=== PATIENT | female | born 1995 | race Caucasian/White ===

== ENCOUNTER 2024-10-08 11:22 | Emergency (ER) | payer OTHER, SELFPAY ==
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
[2024-10-08 11:23] VITALS: BP 147/102; PULSE 75; RESP 16; TEMP 36.2; O2SAT 98
--- OUTSIDE RECORDS SUMMARY | 2024-10-08 11:25 | XMS_ITS | Clinical Summary ---
Author Organization [facility] [employer] Address [address] [place] [address] Care Team Providers Care Risk Assessor Name Role Phone Bob Huston MD Primary Care Provider [phone] Source Comments [facility],non-owned Affiliates and Associated Physician Practices is amultiple site organization consisting of ambulatory clinics and hospital sitesin [place], [place], [place] and [place]. This disclosure is being madepursuant to the Care Everywhere program and may not contain all information available regarding this patient. Last updated 18.[facility] Allergies No known active allergies Medications * Be aware that medications may not be up to date on this document. Alwaysverify current medications with the patient. Levonorgestrel 13.5 MG 13.5 mg by Intrauterine route as directed Active Active Problems Problem Noted Date Diagnosed Date Well female exam with routine gynecological exam 03/31/2022 Assessment & Plan (03/31/2022 4:43 PM CDT): Pap smear performed - with reflex HPV. Declines STI screening Not yet due for mammogram. Family planning reviewed. She is currently using IUD for contraception but is due for it to be removed. She recently got and they may attempt next year. Recommended vitamins prior to trying. Next appointment IUD removal. Surveillance of (intrauterine) contraceptive dev ice 03/03/2019 Overview (03/03/2019): 01/28/2019 Michelle IUD (3 year) Papanicolaou smear of cervix with low grade squamous intraepithelial lesion (LGSIL) 06/30/2018 Overview (01/06/2019): S/p gardasil vaccine x 3 06/2018: LSIL pap, plan repeat cytology 12 months Resolved Problems Problem Noted Date Diagnosed Date Resolved Date Encounter for gynecological examination without abnormal finding 04/05/2015 07/01/2019 Overview (09/21/2017): 01/2015. Initiated OCPs (alesse) for BC Family History Medical History Relation Name Comments Hypertension Brother Diabetes Father Hypertension Father Cancer - Colon Maternal Grandfather Diabetes Maternal Grandfather Diabetes Maternal Grandmother Diabetes Mother Diabetes Paternal Grandfather Relation Name Status Comments Brother Father Maternal Grandfather Maternal Grandmother Mother Paternal Grandfather Social History Tobacco Use Types Packs/Day Years Used Date Smoking Tobacco: Never Smokeless Tobacco: Never Alcohol Use Standard Drinks/Week Comments Yes 0 (1 standard drink = 0.6 oz pur e alcohol) 5 a week Comments No Sex and Gender Information Value Date Recorded Sex Assigned at Not on file 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 Gender Identity Not on file Sexual Orientation Not on file Last Filed Vital Signs Vital Sign Reading Time Taken Comments Blood Pressure 122/82 03/31/2022 3:11 PM CDT Pulse 88 03/31/2022 3:11 PM CDT Temperature - - Respiratory Rate - - Oxygen Saturation 92% 03/31/2022 3:11 PM CDT Inhaled Oxygen Concentration - - Weight 135.2 kg (298 lb) 03/31/2022 3:11 PM CDT Height 177.8 cm (5' 10 ) 03/31/2022 3:11 PM CDT Body Mass Index 42.76 03/31/2022 3:11 PM CDT Plan of Treatment Health Maintenance Due Date Last Done Comments HIV SCREENING 2011 HEPATITIS C SCREENING 06/21/2014 DTAP/TDAP/TD VACCINES (1 - Tdap) 2015 HEPATITIS B VACCINE (1 of 3 - 19+ 3-dose series) 2015 COVID-19 VACCINE (2023-2 5 season) 2024 DEPRESSION SCREENING 06/22/2024 INFLUENZA VACCINE (Season Ended) 2025 05/16/2022 PAP SMEAR 03/31/2025 03/31/2022, 07/01/2019, 06/23/2018 ZOSTER VACCINE (1 of 2) 2046 HIB VACCINE Aged Out No longer eligi ble based on patient's age to complete this topic HPV VACCINE Aged Out No longer eligi ble based on patient's age to complete this topic MENINGOCOCCAL (Group B) VACCINE SHARED DECISION-MAKING Aged Out No longer eligible based on patient's age to complete this topic MENINGOCOCCAL GROUPS A/C/Y/W VACCINE Aged Out No longer eligible b ased on patient's age to complete this topic PNEUMOCOCCAL VACCINE Aged Out No long er eligible based on patient's age to complete this topic Procedures Procedure Name Priority Date/Time Associated Diagnosis Comments PAP IMAGE-GUIDED RFLX HPV Routine 03/31/2022 3:30 PM CDT Well female exam with routine gynecological exam from Last 3 Months or Most Recently Relevant to Health Maintenance Results * PAP IMAGE-GUIDED RFLX HPV (03/31/2022 3:30 PM CDT) Case Report Gynecologic Cytology Report Case: [id number] Authorizing Provider: Shayy Sands MD Collected: 03/31/2022 03:30 PM Ordering Location: [facility] Obstetrics Received: 04/01/2022 12:03 PM [facility]cology [facility] Women[facility] First Screen: Michael Ken Specimen: THINPREP - NON IMAGE GUIDED, Cervix/Endocervix 04/01/2022 1:50 PM CDT [facility] LMP n/a 04/01/2022 1:50 PM CDT [facility] Menstrual Status IUD 04/01/20 22 1:50 PM CDT [facility] Specimen Adequacy Satisfactory for evaluation, endocervical/trans formation zone component present. 04/01/2022 1:50 PM CDT [facility] Categorization Negative for intraepithelial lesion or malignancy. 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 04/01/2022 1:50 PM CDT [facility] Pap Footnote The Pap Smear is a screening test. False positive and false negative results occur. Negative results do not preclude abnormalities, thus clinical correlation is required. This specimen was evaluated by the ThinPrep Imaging System along with an additional manual rescreening by a guitar maker hand and/or pathologist. 04/01/2022 1:50 PM CDT [facility] Pathology/Cytolo gy MISCELLANEOUS SAMPLES / Unknown 03/31/2022 3:30 PM CDT 04/01/2022 12:03 PM CDT Shayy Sands MD LAB - PATHOLOGY/CYTOLOGY O RDERABLES Final Result Performing Organization Address City/State/[facility] Co de Phone Number [facility] [address] [phone] from Last 3 Months or Most Recently Relevant to Health Maintenance Insurance [employer] Care Teams Risk Assessor Relationship Specialty Start Date End Date Bob Huston MD [address] [place] [address] PCP - General 03/15/18
--- OUTSIDE RECORDS SUMMARY | 2024-10-08 11:25 | XMS_ITS | Encounter Summary ---
Author Organization [facility] Address [address] [place] [address] Care Team Providers Care Transit Operator Name Role Phone No, Physician Unavailable Eduardo Chong MD Unavailable Anita Ibarra Primary Care Provider + Encounter Details Date Type Department Care Team (Late st Contact Info) Description 09/21/2024 Results Follow-Up [facility] Family Medicine [address] [phone] Janine Diaz PA [address] [address] Social History Tobacco Use Types Packs/Day Years Used Date Smoking Tobacco: Never Smokeless Tobacco: Never AUDIT-C Answer Date Recorded Q1: How often do you have a drink containing alcohol? Never 04/01/2024 Q2: How many drinks containi ng alcohol do you have on a typical day when you are drinking? Patient does not drink Q3: How often do you have si x or more drinks on one occasion? Never 04/01/2024 PHQ-2 Answer Date Recorded PHQ-2 Total Score (If total score is 3 or more points, staff should administer the PHQ-9) 0 06/10/2024 [place] Depression Scale Answer Date Recorded [place] Depression Scale Total 3 02/14/2024 The thought of harming myself has occurred to me . Never 02/14/2024 PHQ-9 Answer Date Recorded PHQ-9 Total Score 1 02/17/2024 Personal Safety Answer Date Recorded Have you ever been in or are you currently in a harmful physical or emotional relationship or is someone making you feel afraid or unsafe? 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 Gender Identity Female 09/08/2022 10:50 AM CDT Sexual Orientation Straight 03/01/2024 12 :19 PM CDT documented as of this encounter Plan of Treatment Not on file documented as of this encounter Visit Diagnoses Not on filedocumented in this encounter Care Teams Transit Operator Relationship Specialty Start Date End Date Anita Ibarra PA [address] [facility] [address] [place], [place] [phone] PCP - General Family Medicine 02/17/24 No, Physician 09/05/22 Eduardo Chong MD [address] [place] [address] [address] [place] [address] Consulting Physician General Surgery 01/23/24 documented as of this encounter
--- OUTSIDE RECORDS SUMMARY | 2024-10-08 11:25 | XMS_ITS | Clinical Summary ---
Author Organization [facility] Address [address] [place] [address] Care Team Providers Care Clinical Laboratory Science Professor Name Role Phone No, Physician Unavailable Eduardo Chong MD Unavailable Anita Ibarra Primary Care Provider + Allergies No known active allergies Medications vit [id number] a 27mg iron- 800 mcg-250 mg capsule Take by mouth Active escitalopram (LEXAPRO) 10 mg tablet Take 1 tablet (10 mg total) by mouth daily 30 tablet 5 02/18/2024 Active Hospital, Clinic, or Other Facility Administered Medication Ordered Dose Route Frequency Start Date End Date Status levonorgestreL (MIRENA) 21 mcg/24 hr (8 yrs) 52 mg IUDIndications:Abn ormal Uterine Bleeding intrauterine Continuous (implanted device) 02/18/2024 9 Active Active Problems Problem Noted Date Diagnosed Date Splenomegaly 04/01/2024 Assessment & Plan (06/10/2024 8:28 PM ACOUSTIC INTELLIGENCE SPECIALIST): CBC normal, LFT's normalized US Spleen appears worsening Repeat US spleen in a few weeks Recheck CBC and mono/EBV as well (already ordered) Unknown if spleen was enlarged prior to January - no other imaging to have comparison to previously. Will continue to follow Should it continue to enlarge, would refer to specialist Assessment & Plan (04/01/2024 11:36 AM CDT): Mild splenomegaly seen on MRI and ultrasound of the spleen. Patient has normal CBC. Liver enzymes have significantly improved. Discussed that her splenomegaly could have been related to her cholecystitis/pancreatitis in the past. She denies any abdominal pain. Discussed further workup. For now, we will plan on repeat labs and ultrasound of the spleen in 2 months (3 months from previous test). Educated patient to alert the office should she develop any symptoms which might include but not limited to: Abdominal pain, irregular bruising or bleeding, signs of infection, significant weight change. Cautioned patient to follow splenomegaly precautions - avoid any contact sports or recreational activities could result in fall or injury to the abdomen. She voiced understanding History of cholecystectomy 02/17/2024 Assessment & Plan (02/17/2024 5:01 PM CDT): Doing well postop. Repeat liver enzymes ordered and reviewed. Have improved. Patient was already seen her surgeon for follow up. Class 3 severe obesity due t o excess calories without serious comorbidity with body mass index (BMI) of 40.0 to 44.9 in adult 01/23/2024 Assessment & Plan (02/17/2024 5:02 PM CDT): Patient is 5 weeks . We will continue to monitor her weight. BMI Follow-up includes: nutrition counseling and exercise counseling. care following vaginal delivery 01/07 Overview (01/09/2024): 01/08/24, PPD#1 (Wine) S/p uncomplicated Baby Girl, Annette Del Rosario EBL 400 cc, Hgb 12.4 > 11.7 A+, Rubella immune Vital signs reviewed and notable for MR BP x5 gHTN: PIH labs pending for today; CBC and CMP ordered Reviewed s/p PreE, pt is asymptomatic at this time Ambulating, tolerating PO, voiding spontaneously, lochia moderate, pain controlled MOF: Both formula and MOC: Undecided VTE ppx: The patient has the following MAJOR risk factors BMI >/= 40 and the following MINOR risk factors none. enoxaparin 40 mg daily ordered for VTE prophylaxis. Dispo: Continue routine care. 01/09/24, PPD#2 (BD) S/p uncomplicated Baby Girl, Annette Del Rosario EBL 400 cc, Hgb 12.4 > 11.7 A+, Rubella immune Vital signs reviewed and notable for MR BP gHTN: PIH labs - normal, asympt, no treatable BPs Reviewed Pre-E precautions Needs f/u BP check in 1wk in office Ambulating, tolerating PO, voiding spontaneously, lochia moderate, pain controlled MOF: Both formula and MOC: Undecided VTE ppx: The patient has the following MAJOR risk factors BMI >/= 40 and the following MINOR risk factors none. enoxaparin 40 mg daily ordered for VTE prophylaxis. Dispo: Continue routine care. Anticipate D/C home today. Encounter for induction of labor 01/07/2024 Overview (01/09/2024): 01/07/2024 0810 (CZ) 28 yo @ 37w1d here for induction of labor. Her is complicated by gHTN (normal Pre-e labs) and Obesity (last EFW 65%). VSS, afebrile A+, Rubella Immune Hgb: 11.7 GBS Negative Reactive tracing SVE 2/50/-2 S/p miso x2 doses Plan: Epidural placement and AROM @ 10 with OT Consider internals if needed Anticipate 01/07/2024 1018 (CZ) VSS, afebrile Reactive tracing Comfortable with epidural SVE: 4/50/-2 AROM performed with patient consent. Moderate amount of pink tinged fluid Plan - initiate OT Consider internals if needed Anticipate 01/07/2024 1304 (CZ) VSS, afebrile Reactive tracing Comfortable with epidural SVE: 4.5/70/-1 Ot titration @ 2mu/hr - continue titration per protocol IUPC and FSE placed with patient consent. Anticipate 01/07/2024 1545 (CZ) VSS, afebrile Reactive tracing Comfortable with epidrual SVE 5/90/0 OT titration at 10 mu/hr Suspect OP baby Patient to hands and knees to shake the apple tree and hips/SI joint massage Anticipate Obesity affecting , antepartum 07/08/19 24 Resolved Problems Problem Noted Date Diagnosed Date Resolved Date Acute pancreatitis without i nfection or necrosis, unspecified pancreatitis type 01/23/2024 02/17/2024 Elevated transaminase level 01/23/2024 06/10/2024 Assessment & Plan (06/10/2024 8:26 PM ACOUSTIC INTELLIGENCE SPECIALIST): Resolved Assessment & Plan (04/01/2024 11:36 AM CDT): Improved. Repeat labs 2 months Assessment & Plan (02/17/2024 5:01 PM CDT): Repeat labs so that these levels have returned to normal/baseline. Likely was elevated due to acute cholecystitis at that time. Thickening of wall of gallbladder 01/23/2024 02/17/2024 Encounters Date Type Department Care Team Description 09/21/2024 Results Follow-Up [facility] Medicine [address] [place] [phone] Janine Diaz PA 09/14/2024 5:19 PM CDT - 09/14/2024 11:59 PM CDT Hospital Encounter [facility] Ultrasound [address] [place] [phone] Splenomegaly; LUQ pain Discharge Disposition: Discharge to home or self care 09/05/2024 10:45 AM CDT Office Visit [facility] Family Medicine [address] [place] [phone] Eduardo Polanco MD LUQ pain (Primary Dx); Left flank pain; Acute left-sided low back pain without sciatica; Splenomegaly; Morbid obesity with BMI of 40.0-44.9, adult (HCC) 08/04/2024 Telephone [facility] Family Medicine [address] [place] [phone] Anita Ibarra PA 07/20/2024 Orders Only [facility] Lab [address] [place] [address] Anita Ibarra PA 07/19/[address] [phone] Anita Ibarra PA 07/19/2024 Orders Only [address] [phone] Anita Ibarra PA 07/18/2024 1:35 PM ACOUSTIC INTELLIGENCE SPECIALIST Lab [facility] Lab [address] [place] [phone] Splenomegaly 07/11/[address] [phone] Anita Ibarra PA Medical Question/Miscellaneo us 07/11/[address] [phone] Anita Ibarra PA from Last 3 Months Immunizations Immunization Administration Dates Next Due DTaP 02/11/2002, 8,01/06/1997,10/31,1996 HPV, Quadrivalent 09/24/2010,03/22/2010,12/22/19 10 Hep A, Pediatric 12/18/2008,01/22/2007 Hep B, Adolescent or Pediatric 03/24/1997,1996,1996 HiB 01/06/1997,1996,1996 IPV 02/11/2002, 8,1996,09/01 Influenza, Live, Trivalent, Intranasal 0 Influenza, Quadrivalent, Celestina l Culture-based MDCK, Preservative Free, Antibiotic Free, Intramuscular 04/29/2023 Influenza, Quadrivalent, Spl it, Intramuscular 06/27/2015 Influenza, Trivalent, Cell Culture-based MDCK, Preservative Free, Antibiotic Free, Intramuscular 03/24/2024 Influenza, Unspecified 04/29/2023,2021(Deferred: Patient decision),03/22/2022 MMR 02/11/2002,06/30/1997 Meningococcal MCV4P (Menactra) 01/19/2013,2008 Tdap 11/03/2023,01/22/2007 Varicella 01/22/2007,06/30/1997 Surgical History Surgery Date Site/Laterality Comments CHOLECYSTECTOMY 01/23/24 Medical History Medical History Date Comments Acute pancreatitis without i nfection or necrosis, unspecified pancreatitis type 01/23/2024 Thickening of wall of gallbladder 01/23/2024 Elevated transaminase level 01/23/2024 Family History Medical History Relation Name Comments Multiple myeloma Maternal Grandmother blood cancer Maternal Grandmother bone ma rrow transplant Diabetes Mother Julia Heart attack Paternal Grandmother Sade Breast cancer Neg Hx Colon cancer Neg Hx Ovarian cancer Neg Hx Uterine cancer Neg Hx Relation Name Status Comments Father Alive Maternal Grandmother Mother Julia Alive Paternal Grandmother Sade Social History Tobacco Use Types Packs/Day Years Used Date Smoking Tobacco: Never Smokeless Tobacco: Never Tobacco Cessation:Counseling Given: Not Answered AUDIT-C Answer Date Recorded Q1: How often [...] staff should administer the PHQ-9) 0 06/10/2024 [place] Depression Scale Answer Date Recorded [place] Depression Scale Total 3 02/14/2024 The thought [...] on file Legal Sex Female 2:01 PM ACOUSTIC INTELLIGENCE SPECIALIST Gender Identity Female 09/08/2022 10:50 AM CDT Sexual Orientation Straight 03/01/2024 12 :19 PM CDT Obstetrics History Para Term AB IAB SAB Ectopic Multiple Livin g Live Births 1 1 1 0 0 0 0 0 0 1 1 Date Outcome GA Total Labor Labor/2nd/3rd Weight Sex Type Anes PTL Lakeshia A1 A5 Name Clin 2023 Term 37w 1d 8h 11m 7h 51m/0h 18m/0h 02m 3.135 kg (6 lb 14.6 oz) F Vagina l Epidur al N Livin g 9 9 Annette Yoon ier Ana M Varma MD Complications:None Delivery Location:[facility] Main C ampus ([facility]) Last Filed Vital Signs Vital Sign Reading Time Taken Comments Blood Pressure 116/80 09/05/2024 10:44 AM CDT Pulse 67 09/05/2024 10:44 AM CDT Temperature 36.3 C (97.4 F) 09/05/2024 10:44 AM CDT Respiratory Rate 18 09/05/2024 10:44 AM CDT Oxygen Saturation 99% 09/05/2024 10:44 AM CDT Inhaled Oxygen Concentration - - Weight 140.2 kg (309 lb) 09/05/2024 10:44 AM CDT Height 177.8 cm (5' 10 ) 09/05/2024 10:44 AM CDT Body Mass Index 44.34 09/05/2024 10:44 AM CDT Plan of Treatment Health Maintenance Due Date Last Done Comments Regular Well Visit/Exam 18-64 2014 Cervical Cancer Screening 03/31/2025 03/31/2022 Depression Screening 06/10/2025 06/10/2024, 04/01/2024, 02/17/2024, Additional history exists DTaP/Tdap/Td Vaccine (8 - Td or Tdap) 11/02/2033 11/03/2023, 01/22/2007, 02/11/2002, Additional history exists Hepatitis B Screening Completed 03/24/1997 , 1996, 1996 Varicella Vaccines Completed 01/22/2007, 06/30/1997 HPV Vaccines Completed 09/24/2010, 1006/2009, 12/21/2009 Hepatitis C Screening Completed 07/10/2023 Covid-19 Vaccine Completed 03/24/2024, , 07/19/2020, Additional history exists Influenza Vaccine Completed 03/24/2024, , 04/29/2023, Additional history exists Pneumococcal vaccine <65 Aged Out No longer eligible based on patient's age to complete this topic Procedures Procedure Name Priority Date/Time Associated Diagnosis Comments US SPLEEN Schedule Routine, Read Routine (OP Routine) 09/14/2024 5:30 PM CDT Splenomegaly LUQ pain SLIDE REVIEW - PATHOLOGIST Routine 07/18/2024 1:47 PM ACOUSTIC INTELLIGENCE SPECIALIST Splenomegaly MANUAL DIFFERENTIAL Routine 07/18/2024 1 :47 PM ACOUSTIC INTELLIGENCE SPECIALIST Splenomegaly DIFFERENTIAL AUTO Routine 07/18/2024 1:4 7 PM ACOUSTIC INTELLIGENCE SPECIALIST Splenomegaly CBC WITH AUTO DIFFERENTIAL Routine 07/18/2024 1:47 PM ACOUSTIC INTELLIGENCE SPECIALIST Splenomegaly HEPATITIS C ANTIBODY Routine 07/10/2023 11:32 AM ACOUSTIC INTELLIGENCE SPECIALIST Encounter for supervision of normal in first trimester, unspecified from Last 3 Months or Most Recently Relevant to Health Maintenance Results * US Spleen (09/14/2024 5:30 PM CDT) Anatomical Region Laterality Modality Abdomen N/A Ultrasound 09/21/2024 6:37 AM CDT Narrative 09/21/2024 6:38 AM CDT EXAM DESCRIPTION: US SPLEEN REASON FOR STUDY: splenomegaly, worsening LUQ pain TECHNIQUE: Grayscale ultrasound images acquired of the spleen. Additional color Doppler images acquired. COMPARISON: 06/29/2024. FINDINGS: The spleen now measures 12.0 x 4.9 x 6.8 cm. Relatively homogeneous parenchyma with no masses. Previously the spleen was 13.9 cm. IMPRESSION: Spleen now 12.0 cm, previously 13.9 cm. THIS IS AN ELECTRONICALLY VERIFIED FINAL REPORT 09/21/2024 6:38 AM - Electronically signed by Simón Daniels M.D. CH: FAB Report ID: [id number] Reading Location: [id number] Procedure Note Simón Daniels Jr., MD - 09/21/2024 EXAM DESCRIPTION: US SPLEEN REASON FOR STUDY: splenomegaly, worsening LUQ pain TECHNIQUE: Grayscale ultrasound images acquired of the spleen. Additional color Doppler images acquired. COMPARISON: 06/29/2024. FINDINGS: The spleen now measures 12.0 x 4.9 x 6.8 cm. Relativelyhomogeneous parenchyma with no masses. Previously the spleen was 13.9 cm. IMPRESSION: Spleen now 12.0 cm, previously 13.9 cm. THIS IS AN ELECTRONICALLY VERIFIED FINAL REPORT 09/21/2024 6:38 AM - Electronically signed by Simón Daniels M.D. CH: Report ID: [id number] Reading Location: [id number] us Eduardo Polanco MD IMG US PROCEDURES Fi nal Result * Slide review - pathologist (07/18/2024 1:47 PM ACOUSTIC INTELLIGENCE SPECIALIST) Slide review by Slide Made Comment: Slide reviewed by Senior Staff.Agree with Manual Differential, few giant platelets seen. SentFor path review due to physian request. Sarah Dante 07/22/2024 08:49:09 ACOUSTIC INTELLIGENCE SPECIALIST Testing performed by: [facility], [address] [place] [address]., [address] Blood 07/18/2024 1:47 PM ACOUSTIC INTELLIGENCE SPECIALIST 07/18/2024 2:04 PM ACOUSTIC INTELLIGENCE SPECIALIST Narrative [facility] - 07/22/2024 8:49 AM ACOUSTIC INTELLIGENCE SPECIALIST unexplained splenomegaly us Anita HENDERSON LAB BLOOD ORDERABLES Fin al Result [facility] [address] [facility] [place] [address] * Differential, auto (07/18/2024 1:47 PM ACOUSTIC INTELLIGENCE SPECIALIST) Neutrophil abs 3.6 1.5 - 6.5 K/cumm Comment:Testing performed by : [address], [place]., [address] Imm gran abs 0.0 0.0 - 0.1 K/cumm [facility] Comment:Testing performed by : [address], [place]., [address] Lymphocyte abs 1.5 0.8 - 3.3 K/cumm [facility] Comment:Testing performed by : [address] [address] Monocyte abs 0.6 0.2 - 0.8 K/cumm [facility] Comment:Testing performed by : [address], [place]., [address] Eosinophil abs 0.1 0.0 - 0.5 K/cumm [facility] Comment:Testing performed by : [address], [place]., [address] Basophil abs 0.0 0.0 - 0.1 K/cumm [facility] Comment:Testing performed by : [address] [address] Neutrophil pct 61.4 % [facility] Comment: Interpretive Data Percent cell count reference ranges are not reported, since discordance with absolute values may lead to misinterpretation of CBC data. Current Interpretive Data was last revised on 2017. Testing performed by: [address] [address] Imm gran pct 0.2 % [facility] Comment: Interpretive Data Percent cell count reference ranges are not reported, since discordance with absolute values may lead to misinterpretation of CBC data. Current Interpretive Data was last revised on 2017. Testing performed by: [address] [address] Lymphocyte pct 25.4 % [facility] Comment: Interpretive Data Percent cell count reference ranges are not reported, since discordance with absolute values may lead to misinterpretation of CBC data. Current Interpretive Data was last revised on 2017. Testing performed by: [address] [address] Monocyte pct 9.9 % [facility] Comment: Interpretive Data Percent cell count reference ranges are not reported, since discordance with absolute values may lead to misinterpretation of CBC data. Current Interpretive Data was last revised on 2017. Testing performed by: [address] [address] Eosinophil pct 2.4 % [facility] Comment: Interpretive Data Percent cell count reference ranges are not reported, since discordance with absolute values may lead to misinterpretation of CBC data. Current Interpretive Data was last revised on 2017. Testing performed by: [address] [address] Basophil pct 0.7 % [facility] Comment: Interpretive Data Percent cell count reference ranges are not reported, since discordance with absolute values may lead to misinterpretation of CBC data. Current Interpretive Data was last revised on 2017. Testing performed by: [address] [address] Blood 07/18/2024 1:47 PM ACOUSTIC INTELLIGENCE SPECIALIST 07/18/2024 2:04 PM ACOUSTIC INTELLIGENCE SPECIALIST us Anita HENDERSON LAB BLOOD ORDERABLES Fin al Result [facility] [address] [facility] Department of Laboratories [place], [place] [id number] * CBC with auto differential (07/18/2024 1:47 PM ACOUSTIC INTELLIGENCE SPECIALIST) Pathologist [facility] [place] WBC 5.9 3.8 - 9.9 K/cumm Comment:Testing performed by : [address] [address] Hgb 12.9 11.9 - 15.5 g/dL [facility] Comment:Testing performed by : [address] [address] Hct 37.3 35.6 - 45.5 % [facility] Comment:Testing performed by : [address] [address] Plt 208 150 - 400 K/cumm [facility] Comment:Testing performed by : [address] [address] MPV 11.2 9.1 - 12.3 fL [facility] Comment:Testing performed by : [address] [address] RBC 4.26 3.90 - 5.20 M/cumm [facility] Comment:Testing performed by : [address] [address] MCV 87.6 81.3 - 96.4 fL [facility] Comment:Testing performed by : [address] [address] MCH 30.3 27.1 - 33.3 pg [facility] Comment:Testing performed by : [address] [address] MCHC 34.6 32.3 - 35.7 g/dL [facility] Comment:Testing performed by : [address] [address] RDW CV 12.2 11.1 - 14.9 % [facility] Comment:Testing performed by : [address] [address] RDW SD 38.5 35.7 - 48.1 fL [facility] Comment:Testing performed by : [address] [address] NRBC abs 0.00 0.00 - 0.01 K/cumm [facility] Comment:Testing performed by : [address] [address] Blood 07/18/2024 1:47 PM ACOUSTIC INTELLIGENCE SPECIALIST 07/18/2024 2:04 PM ACOUSTIC INTELLIGENCE SPECIALIST us Anita HENDERSON LAB BLOOD ORDERABLES Abimael mauricio Result - Final [facility] [address] [facility] Department [place] [address] * (ABNORMAL) Manual Differential (07/18/2024 1:47 PM ACOUSTIC INTELLIGENCE SPECIALIST) Differential Manual Comment:Testing performed by : [address] [address] Cells Counted 100 [facility] Comment:Testing performed by : [address] [place] [address] Neutrophil pct 44.0 % [facility] Comment: Interpretive Data Percent cell count reference ranges are not reported, since discordance with absolute values may lead to misinterpretation of CBC data. Current Interpretive Data was last revised on 2017. Testing performed by: [address] [address] Lymphocyte pct 38.0 % [facility] Comment: Interpretive Data Percent cell count reference ranges are not reported, since discordance with absolute values may lead to misinterpretation of CBC data. Current Interpretive Data was last revised on 2017. Testing performed by: [address] [address] Monocyte pct 7.0 % [facility] Comment: Interpretive Data Percent cell count reference ranges are not reported, since discordance with absolute values may lead to misinterpretation of CBC data. Current Interpretive Data was last revised on 2017. Testing performed by: [address] [address] Eosinophil pct 6.0 % [facility] Comment: Interpretive Data Percent cell count reference ranges are not reported, since discordance with absolute values may lead to misinterpretation of CBC data. Current Interpretive Data was last revised on 2017. Testing performed by: [address] [address] Basophil pct 1.0 % [facility] Comment: Interpretive Data Percent cell count reference ranges are not reported, since discordance with absolute values may lead to misinterpretation of CBC data. Current Interpretive Data was last revised on 2017. Testing performed by: [address] [address] Band Neutrophil pct 1.0 % [facility] Comment:Testing performed by : [address] [address] Metamyelocyte pct 0.0 % [facility] Comment:Testing performed by : [address] [address] Myelocyte pct 0.0 % [facility] Comment:Testing performed by : [address] [address] Promyelocyte pct 0.0 % [facility] Comment:Testing performed by : [facility], [address] [place] [address], [place]., [address] Blast pct 0.0 0.0 - 0.0 % [facility] Comment:Testing performed by : [facility], [address] [place] [address], [place]., [address] Variant lymph pct 3.0(H) 0.0 - 0.0 % [facility] Comment:Testing performed by : [address], [place]., [address] Plasma cell pct 0.0 % [facility] Comment:Testing performed by : [address], [place]., [address] RBC morphology Consistent with RBC Indicies [facility] Comment:Testing performed by : [address] [address] Anisocytosis Slight(A) [facility] Comment:Testing performed by : [address] [address] Platelet estimate Adequate [facility] Comment:Testing performed by : [address] [address] [address] Arnold Normocytic RBCs, WBC count normal in number and predominantly normal in morphology. No significant correlation of circulatory blasts identified. Normal platelet count with predominantly normal morphology. [facility] Comment:Testing performed by : [facility], [address] [place] [address]., [address] Blood 07/18/2024 1:47 PM ACOUSTIC INTELLIGENCE SPECIALIST 07/18/2024 2:04 PM ACOUSTIC INTELLIGENCE SPECIALIST Anita HENDERSON LAB BLOOD ORDERABLES Abimael mauricio Result - Final [facility] [address] [facility] Department [place] [address] * Hepatitis C antibody Blood (07/10/2023 11:32 AM ACOUSTIC INTELLIGENCE SPECIALIST) Hep C Ab Nonreactive Nonreactive [facility] Comment: Antibodies to HCV not detected. Does NOT exclude the possibility of recent exposure to HCV. Current interpretive data was last revised on 22 Interpretive Data Nonreactive: Antibodies to HCV not detected. Does NOT exclude the possibility of recent exposure to HCV. Equivocal: Equivocal for HCV antibodies. Supplemental molecular testing will be automatically performed to determine infection status in accordance with current CDC screening recommendations. Reactive: Positive for HCV antibodies. This may represent current or past HCV infection. Supplemental molecular testing will be automatically performed to determine current infection status in accordance with current CDC screening recommendations. Interpretive data was last revised on 2019. Blood 07/10/2023 11:3 2 AM ACOUSTIC INTELLIGENCE SPECIALIST 07/10/2023 2:22 PM ACOUSTIC INTELLIGENCE SPECIALIST us Roby Leong MD LAB MICROBIOLOGY - GENERAL ORDERABLES Edited Result - Final [facility] [address] [facility] [place] [address] from Last 3 Months or Most Recently Relevant to Health Maintenance Insurance [employer] Address: [facility] [id number] [place] [address] [employer] Address: [facility] [id number] [place] [phone] Advance Directives For more information, please contact: [phone] * Full Code (Latest Code Status on File) Date Activated Date Inactivated Comments 01/23/2024 2:08 PM 01/24/2024 3:55 PM * Full Code Date Activated Date Inactivated Comments 01/07/2024 6:56 PM 01/09/2024 4:14 PM * Full Code Date Activated Date Inactivated Comments 01/07/2024 1:40 AM 01/07/2024 6:56 PM Full CPR in case of cardiopulmonary arrest Care Teams Clinical Laboratory Science Professor Relationship Specialty Start Date End Date Anita Ibarra PA [address] [facility] [address] [place], [place] [id number] PCP - General Family Medicine 02/17/24 No, Physician 09/05/22 Eduardo Chong MD [facility] [address] [place] [address] Consulting Physician General Surgery 01/23/24
--- OUTSIDE RECORDS SUMMARY | 2024-10-08 11:25 | XMS_ITS | Referral Summary ---
Author Organization [facility] Address [address] [place] [address] Care Team Providers Care Gristmill Operator Name Role Phone No, Physician Unavailable Eduardo Chong MD Unavailable [phone] Anita Ibarra Primary Care Provider + Encounters Date Type Department Care Team Description 09/21/2024 Results Follow-Up [facility] Medicine [address] [place] [phone] Janine Diaz PA 09/14/2024 5:19 PM CDT - 09/14/2024 11:59 PM CDT Hospital Encounter [facility] Ultrasound [facility] [place], [place] [id number] Splenomegaly; LUQ pain Discharge Disposition: Discharge to home or self care 09/05/2024 10:45 AM CDT Office Visit [address] [phone] Eduardo Polanco MD LUQ pain (Primary Dx); Left flank pain; Acute left-sided low back pain without sciatica; Splenomegaly; Morbid obesity with BMI of 40.0-44.9, adult (HCC) 08/04/2024 Telephone [facility] Medicine [address] [place] [phone] Anita Ibarra PA 07/20/2024 Orders Only [facility] Lab [address] [place] [address] Anita Ibarra PA 07/19/[address] [phone] Anita Ibarra PA 07/19/2024 Orders Only [address] [phone] Anita Ibarra PA 07/18/2024 1:35 PM DROP FORGER Lab [facility] Lab [address] [place] [id number] [facility] 07/11/[address] [phone] Anita Ibarra PA Medical Question/Miscellaneo us 07/11/[address] [phone] Anita Ibarra PA from Last 3 Months Allergies No known active allergies Medications vit [id number] a 27mg iron- 800 mcg-250 mg capsule [...] 04/01/2024 Assessment & Plan (06/10/2024 8:28 PM DROP FORGER): CBC normal, LFT's normalized US Spleen appears [...] of labor 01/07/2024 Overview (01/09/2024): 01/07/2024 0810 () 28 yo @ 37w1d here for induction [...] 06/10/2024 Assessment & Plan (06/10/2024 8:26 PM DROP FORGER): Resolved Assessment & Plan (04/01/2024 11:36 AM CDT): Improved. Repeat labs 2 months Assessment & Plan (02/17/2024 5:01 PM CDT): Repeat labs so that these levels have returned to normal/baseline. Likely was elevated due to acute cholecystitis at that time. Thickening of wall of gallbladder 01/23/2024 02/17/2024 Immunizations Immunization Administration Dates Next Due DTaP [...] MCV4P (Menactra) 01/19/2013,2008 Tdap 11/03/2023,01/22/2007 Varicella 01/22/2007,06/30/1997 Social History Tobacco Use Types Packs/Day Years [...] staff should administer the PHQ-9) 0 06/10/2024 [place] Depression Scale Answer Date Recorded [place] Depression Scale Total 3 02/14/2024 The thought [...] on file Legal Sex Female 2:01 PM DROP FORGER Gender Identity Female 09/08/2022 10:50 AM CDT Sexual Orientation Straight 03/01/2024 12 :19 PM CDT Last Filed Vital Signs Vital Sign Reading [...] 09/05/2024 10:44 AM CDT Plan of Treatment Not on file Procedures Procedure Name Priority Date/Time Associated Diagnosis Comments US SPLEEN Schedule Routine, Read Routine (OP Routine) 09/14/2024 5:30 PM CDT Splenomegaly LUQ pain SLIDE REVIEW - PATHOLOGIST Routine 07/18/2024 1:47 PM DROP FORGER Splenomegaly MANUAL DIFFERENTIAL Routine 07/18/2024 1 :47 PM DROP FORGER Splenomegaly DIFFERENTIAL AUTO Routine 07/18/2024 1:4 7 PM DROP FORGER Splenomegaly CBC WITH AUTO DIFFERENTIAL Routine 07/18/2024 1:47 PM DROP FORGER Splenomegaly HEPATITIS C ANTIBODY Routine 07/10/2023 11:32 AM DROP FORGER Encounter for supervision of normal in first [...] Simón Daniels M.D. CH: FAB Report ID: [id number] Reading Location: [id number] Procedure Note Simón Daniels Jr., MD - [...] by Simón Daniels M.D. CH: Report ID: [id number] Reading Location: [place] [address] us Eduardo Polanco MD IMG US PROCEDURES Fi nal Result * Slide review - pathologist (07/18/2024 1:47 PM DROP FORGER) Slide review by Slide Made Comment: Slide reviewed by Senior Staff.Agree with Manual Differential, few giant platelets seen. SentFor path review due to physian request. Sarah Howell 07/22/2024 08:49:09 DROP FORGER Testing performed by: [address] [address] Blood 07/18/2024 1:47 PM DROP FORGER 07/18/2024 2:04 PM DROP FORGER Narrative LUCERO - 07/22/2024 8:49 AM DROP FORGER unexplained splenomegaly us Anita HENDERSON LAB BLOOD ORDERABLES Fin al Result [facility] [address] [facility] Department [place] [address] * Differential, auto (07/18/2024 1:47 PM DROP FORGER) Neutrophil abs 3.6 1.5 - 6.5 K/cumm Comment:Testing performed by : [address] [address] Imm gran abs 0.0 0.0 - 0.1 K/cumm CERNER Comment:Testing performed by : [address] [address] Lymphocyte abs 1.5 0.8 - 3.3 K/cumm CERNER Comment:Testing performed by : [address] [address] Monocyte abs 0.6 0.2 - 0.8 K/cumm [facility] Comment:Testing performed by : [address], [place]., [address] Eosinophil abs 0.1 0.0 - 0.5 K/cumm CERNER Comment:Testing performed by : [address] [address] Basophil abs 0.0 0.0 - 0.1 K/cumm [facility] Comment:Testing performed by : [address] [address] Neutrophil pct 61.4 % [facility] Comment: Interpretive Data Percent cell count reference ranges are not reported, since discordance with absolute values may lead to misinterpretation of CBC data. Current Interpretive Data was last revised on 2017. Testing performed by: [address] [address] Imm gran pct 0.2 % CERNER Comment: Interpretive Data Percent cell count reference ranges are not reported, since discordance with absolute values may lead to misinterpretation of CBC data. Current Interpretive Data was last revised on 2017. Testing performed by: [address] [address] Lymphocyte pct 25.4 % CERNER Comment: Interpretive Data Percent cell count reference ranges are not reported, since discordance with absolute values may lead to misinterpretation of CBC data. Current Interpretive Data was last revised on 2017. Testing performed by: [address] [address] Monocyte pct 9.9 % CERNER Comment: Interpretive Data Percent cell count reference ranges are not reported, since discordance with absolute values may lead to misinterpretation of CBC data. Current Interpretive Data was last revised on 2017. Testing performed by: [address] [address] Eosinophil pct 2.4 % LUCERO BOUCHER Comment: Interpretive Data Percent cell count reference ranges are not reported, since discordance with absolute values may lead to misinterpretation of CBC data. Current Interpretive Data was last revised on 2017. Testing performed by: [address] [address] Basophil pct 0.7 % LUCERO BOUCHER Comment: Interpretive Data Percent cell count reference ranges are not reported, since discordance with absolute values may lead to misinterpretation of CBC data. Current Interpretive Data was last revised on 2017. Testing performed by: [address] [address] Blood 07/18/2024 1:47 PM DROP FORGER 07/18/2024 2:04 PM DROP FORGER Anita HENDERSON LAB BLOOD ORDERABLES [facility] al Result LUCERO [facility] Department [place] [address] * CBC with auto differential (07/18/2024 1:47 PM DROP FORGER) WBC 5.9 3.8 - 9.9 K/cumm Comment:Testing performed by : [address] [address] Hgb 12.9 11.9 - 15.5 g/dL LUCERO BOUCHER Comment:Testing performed by : [address] [address] Hct 37.3 35.6 - 45.5 % LUCERO BOUCHER Comment:Testing performed by : [address] [address] Plt 208 150 - 400 K/cumm LUCERO BOUCHER Comment:Testing performed by : [address] [address] MPV 11.2 9.1 - 12.3 fL LUCERO BOUCHER Comment:Testing performed by : [address] [address] RBC 4.26 3.90 - 5.20 M/cumm LUCERO BOUCHER Comment:Testing performed by : [address] [address] MCV 87.6 81.3 - 96.4 fL LUCERO BOUCHER Comment:Testing performed by : [address] [address] MCH 30.3 27.1 - 33.3 pg LUCERO BOUCHER Comment:Testing performed by : [address] [address] MCHC 34.6 32.3 - 35.7 g/dL LUCERO Comment:Testing performed by : [address], [address] RDW CV 12.2 11.1 - 14.9 % LUCERO BOUCHER Comment:Testing performed by : [address] [address] RDW SD 38.5 35.7 - 48.1 fL LUCERO Comment:Testing performed by : [address], [address] NRBC abs 0.00 0.00 - 0.01 K/cumm LUCERO Comment:Testing performed by : [address] [address] Blood 07/18/2024 1:47 PM DROP FORGER 07/18/2024 2:04 PM DROP FORGER Anita HENDERSON LAB BLOOD ORDERABLES Abimael mauricio Result - Final LUCERO [address] [facility] Department of Laboratories [place], [place] [id number] * (ABNORMAL) Manual Differential (07/18/2024 1:47 PM DROP FORGER) Differential Manual Comment:Testing performed by : [address] [address] Cells Counted 100 LUCERO Comment:Testing performed by : [address] [address] Neutrophil pct 44.0 % LUCERO Comment: Interpretive Data Percent cell count reference ranges are not reported, since discordance with absolute values may lead to misinterpretation of CBC data. Current Interpretive Data was last revised on 2017. Testing performed by: [address] [address] Lymphocyte pct 38.0 % CERANANDA Comment: Interpretive Data Percent cell count reference ranges are not reported, since discordance with absolute values may lead to misinterpretation of CBC data. Current Interpretive Data was last revised on 2017. Testing performed by: [address] [address] Monocyte pct 7.0 % LUCERO Comment: Interpretive Data Percent cell count reference ranges are not reported, since discordance with absolute values may lead to misinterpretation of CBC data. Current Interpretive Data was last revised on 2017. Testing performed by: [address] [address] Eosinophil pct 6.0 % LUCERO Comment: Interpretive Data Percent cell count reference ranges are not reported, since discordance with absolute values may lead to misinterpretation of CBC data. Current Interpretive Data was last revised on 2017. Testing performed by: [address] [address] Basophil pct 1.0 % LUCERO Comment: Interpretive Data Percent cell count reference ranges are not reported, since discordance with absolute values may lead to misinterpretation of CBC data. Current Interpretive Data was last revised on 2017. Testing performed by: [address] [address] Band Neutrophil pct 1.0 % LUCERO Comment:Testing performed by : [address] [address] Metamyelocyte pct 0.0 % LUCERO Comment:Testing performed by : [address] [address] Myelocyte pct 0.0 % LUCERO Comment:Testing performed by : [address] [address] Promyelocyte pct 0.0 % LUCERO Comment:Testing performed by : [address] [address] Blast pct 0.0 0.0 - 0.0 % LUCERO Comment:Testing performed by : [facility], [address] [place] [address], [place]., [address] Variant lymph pct 3.0(H) 0.0 - 0.0 % LUCERO Comment:Testing performed by : [facility], [address] [place] [address], [place]., [address] Plasma cell pct 0.0 % LUCERO Comment:Testing performed by : [address], [place]., [address] RBC morphology Consistent with RBC Indicies LUCERO Comment:Testing performed by : [address], [place]., [address] Anisocytosis Slight(A) LUCERO Comment:Testing performed by : [address], [place]., [address] Platelet estimate Adequate LUCERO Comment:Testing performed by : [address] [address] [address] Arnold Normocytic RBCs, WBC count normal in number and predominantly normal in morphology. No significant correlation of circulatory blasts identified. Normal platelet count with predominantly normal morphology. LUCERO Comment:Testing performed by : [facility], [address] [place] [address]., [address] Blood 07/18/2024 1:47 PM DROP FORGER 07/18/2024 2:04 PM DROP FORGER Anita HENDERSON LAB BLOOD ORDERABLES Abimael mauricio Result - Final L[facility] [address] [facility] Department [place] [address] * Hepatitis C antibody Blood (07/10/2023 11:32 AM DROP FORGER) Hep C Ab Nonreactive Nonreactive LUCERO Comment: [...] on 2019. Blood 07/10/2023 11:3 2 AM DROP FORGER 07/10/2023 2:22 PM DROP FORGER us Roby Leong MD LAB MICROBIOLOGY - GENERAL ORDERABLES Edited Result - Final LUCERO [id number] [facility] Department of Laboratories [place] [phone] from Last 3 Months or Most Recently Relevant to Health Maintenance Insurance [employer] Document Management software [employer] Address: [facility] [id number] [place] [address] [employer] Document Management software [employer] Address: [facility] [address] [place] [address] Advance Directives For more information, please contact: [phone] * Full Code (Latest Code Status on File) Date Activated Date Inactivated Comments 01/23/2024 2:08 PM 01/24/2024 3:55 PM * Full Code Date Activated Date Inactivated Comments 01/07/2024 6:56 PM 01/09/2024 4:14 PM * Full Code Date Activated Date Inactivated Comments 01/07/2024 1:40 AM 01/07/2024 6:56 PM Full CPR in case of cardiopulmonary arrest Care Teams Gristmill Operator Relationship Specialty Start Date End Date Anita Ibarra PA [address] [facility] [address] [place] [address] PCP - General Family Medicine 02/17/24 No, Physician 09/05/22 Eduardo Chong MD [address] [place] [address] [address] [place] [address] Consulting Physician General Surgery 01/23/24
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
--- OUTSIDE RECORDS SUMMARY | 2024-10-08 12:18 | XMS_ITS | Clinical Summary ---
Author Organization [facility] [employer] Address [address] [place] [address] Care Team Providers Care Proposal Consultant Name Role Phone Bob Huston MD Primary Care Provider [phone] Source Comments [facility] [employer],non-owned Affiliates and Associated Physician Practices is amultiple site organization consisting of ambulatory clinics and hospital sitesin [place], [place], [place]. This disclosure is being madepursuant to the Care Everywhere program and may not contain all information available regarding this patient. 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 04/01/2022 1:50 PM CDT [facility] Pap Footnote The Pap Smear is a screening test. False positive and false negative results occur. Negative results do not preclude abnormalities, thus clinical correlation is required. This specimen was evaluated by the ThinPrep Imaging System along with an additional manual rescreening by a tooth cutter spur and/or pathologist. 04/01/2022 1:50 PM CDT [facility] Pathology/Cytolo gy MISCELLANEOUS SAMPLES / Unknown 03/31/2022 3:30 PM CDT 04/01/2022 12:03 PM CDT Shayy Sands MD LAB - PATHOLOGY/CYTOLOGY O RDERABLES Final Result Performing Organization Address City/State/[facility] Co de Phone Number [facility] [address] [phone] from Last 3 Months or Most Recently Relevant to Health Maintenance Insurance [employer] Care Teams Proposal Consultant Relationship Specialty Start Date End Date Bob Huston MD [address] [place] [address] PCP - General 03/15/18
--- OUTSIDE RECORDS SUMMARY | 2024-10-08 12:18 | XMS_ITS | Encounter Summary ---
Author Organization [facility] Address [address] [place] [address] Care Team Providers Care Adult Care Manager Name Role Phone No, Physician Unavailable Eduardo Chong MD Unavailable [phone] Anita Ibarra Primary Care Provider + Encounter Details Date Type Department Care Team (Late st Contact Info) Description 09/21/2024 Results Follow-Up [facility] Family Medicine [address] [phone] Janine Diaz PA [address] [address] Social History Tobacco Use Types [...] staff should administer the PHQ-9) 0 06/10/2024 [place] Depression Scale Answer Date Recorded [place] Depression Scale Total 3 02/14/2024 The thought [...] on file Legal Sex Female 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 Gender Identity Female 09/08/2022 10:50 AM CDT Sexual Orientation Straight 03/01/2024 12 :19 PM CDT documented as of this encounter Plan of Treatment Not on file documented as of this encounter Visit Diagnoses Not on filedocumented in this encounter Care Teams Adult Care Manager Relationship Specialty Start Date End Date Anita Ibarra PA [address] [facility] [address] [place], [place] [id number] PCP - General Family Medicine 02/17/24 No, Physician 09/05/22 Eduardo Chong MD [address] [place] [address] [address] [place] [address] Consulting Physician General Surgery 01/23/24 documented as of this encounter
--- OUTSIDE RECORDS SUMMARY | 2024-10-08 12:18 | XMS_ITS | Referral Summary ---
Author Organization [facility] Address [address] [place] [address] Care Team Providers Care Block Piler Name Role Phone No, Physician Unavailable Eduardo Chong MD Unavailable Anita Ibarra Primary Care Provider + Encounters Date Type Department Care Team Description 09/21/2024 Results Follow-Up [facility] [address] [place] [phone] Janine Diaz PA 09/14/2024 5:19 PM CDT - 09/14/2024 11:59 PM CDT Hospital Encounter [facility] Ultrasound [facility] [place], [place] [id number] Splenomegaly; LUQ pain Discharge Disposition: Discharge to home or self care 09/05/2024 10:45 AM CDT Office Visit [address] [phone] Eduardo Polanco MD LUQ pain (Primary Dx); Left flank pain; Acute left-sided low back pain without sciatica; Splenomegaly; Morbid obesity with BMI of 40.0-44.9, adult (HCC) 08/04/2024 Telephone [facility] Medicine [address] [place] [phone] Anita Ibarra PA 07/20/2024 Orders Only [facility] Lab [address] [place] [phone] Anita Ibarra PA 07/19/[address] [phone] Anita Ibarra PA 07/19/2024 Orders Only [address] [phone] Anita Ibarra PA 07/18/2024 1:35 PM MUSEUM ATTENDANT Lab [facility] Lab [address] [place] [phone] [facility] 07/11/[address] [phone] Anita Ibarra PA Medical Question/Miscellaneo us 07/11/[address] [phone] Anita Ibarra PA from Last 3 Months Allergies No known active allergies Medications vit [id number]-dh a 27mg iron- 800 mcg-250 mg capsule [...] 04/01/2024 Assessment & Plan (06/10/2024 8:28 PM MUSEUM ATTENDANT): CBC normal, LFT's normalized US Spleen appears [...] (BD) S/p uncomplicated Baby Girl, Annette Del Rosairo EBL 400 cc, Hgb 12.4 > 11.7 [...] 06/10/2024 Assessment & Plan (06/10/2024 8:26 PM MUSEUM ATTENDANT): Resolved Assessment & Plan (04/01/2024 11:36 AM [...] staff should administer the PHQ-9) 0 06/10/2024 [place] Depression Scale Answer Date Recorded [place] Depression Scale Total 3 02/14/2024 The thought [...] on file Legal Sex Female 2:01 PM MUSEUM ATTENDANT Gender Identity Female 09/08/2022 10:50 AM CDT [...] REVIEW - PATHOLOGIST Routine 07/18/2024 1:47 PM MUSEUM ATTENDANT Splenomegaly MANUAL DIFFERENTIAL Routine 07/18/2024 1 :47 PM MUSEUM ATTENDANT Splenomegaly DIFFERENTIAL AUTO Routine 07/18/2024 1:4 7 PM MUSEUM ATTENDANT Splenomegaly CBC WITH AUTO DIFFERENTIAL Routine 07/18/2024 1:47 PM MUSEUM ATTENDANT Splenomegaly HEPATITIS C ANTIBODY Routine 07/10/2023 11:32 AM MUSEUM ATTENDANT Encounter for supervision of normal in first [...] Simón Daniels M.D. CH: FAB Report ID: [id number] Reading Location: [id number] Procedure Note Simón Daniels Jr., MD - [...] by Simón Daniels M.D. CH: Report ID: [id number] Reading Location: [place] [address] us Eduardo Polanco MD IMG US PROCEDURES Fi nal Result * Slide review - pathologist (07/18/2024 1:47 PM MUSEUM ATTENDANT) Slide review by Slide Made Comment: Slide reviewed by Senior Staff.Agree with Manual Differential, few giant platelets seen. SentFor path review due to physian request. Sarah Howell 07/22/2024 08:49:09 MUSEUM ATTENDANT Testing performed by: [address] [address] Blood 07/18/2024 1:47 PM MUSEUM ATTENDANT 07/18/2024 2:04 PM MUSEUM ATTENDANT Narrative [facility] - 07/22/2024 8:49 AM MUSEUM ATTENDANT unexplained splenomegaly us Anita HENDERSON LAB BLOOD ORDERABLES Fin al Result [facility] [address] [facility] Department [place] [address] * Differential, auto (07/18/2024 1:47 PM MUSEUM ATTENDANT) Neutrophil abs 3.6 1.5 - 6.5 K/cumm Comment:Testing performed by : [address] [address] Imm gran abs 0.0 0.0 - 0.1 K/cumm CERNER Comment:Testing performed by : [address] [address] Lymphocyte abs 1.5 0.8 - 3.3 K/cumm CERNER Comment:Testing performed by : [address] [address] Monocyte abs 0.6 0.2 - 0.8 K/cumm [facility] Comment:Testing performed by : [address], [place]., [address] Eosinophil abs 0.1 0.0 - 0.5 K/cumm CERNER Comment:Testing performed by : [address] [address] Basophil abs 0.0 0.0 - 0.1 K/cumm [facility] Comment:Testing performed by : [address] [address] Neutrophil pct 61.4 % [facility] Comment: Interpretive Data Percent cell count reference ranges are not reported, since discordance with absolute values may lead to misinterpretation of CBC data. Current Interpretive Data was last revised on 2017. Testing performed by: [address] [address] Imm gran pct 0.2 % CERNER Comment: Interpretive Data Percent cell count reference ranges are not reported, since discordance with absolute values may lead to misinterpretation of CBC data. Current Interpretive Data was last revised on 2017. Testing performed by: [address] [address] Lymphocyte pct 25.4 % CERNER Comment: Interpretive Data Percent cell count reference ranges are not reported, since discordance with absolute values may lead to misinterpretation of CBC data. Current Interpretive Data was last revised on 2017. Testing performed by: [address] [address] Monocyte pct 9.9 % CERNER Comment: Interpretive Data Percent cell count reference ranges are not reported, since discordance with absolute values may lead to misinterpretation of CBC data. Current Interpretive Data was last revised on 2017. Testing performed by: [address] [address] Eosinophil pct 2.4 % L[facility] BOUCHER Comment: Interpretive Data Percent cell count reference ranges are not reported, since discordance with absolute values may lead to misinterpretation of CBC data. Current Interpretive Data was last revised on 2017. Testing performed by: [address] [address] Basophil pct 0.7 % L[facility] BOUCHER Comment: Interpretive Data Percent cell count reference ranges are not reported, since discordance with absolute values may lead to misinterpretation of CBC data. Current Interpretive Data was last revised on 2017. Testing performed by: [address] [address] Blood 07/18/2024 1:47 PM MUSEUM ATTENDANT 07/18/2024 2:04 PM MUSEUM ATTENDANT Anita HENDERSON LAB BLOOD ORDERABLES [facility] al Result [facility] Department [place] [address] * CBC with auto differential (07/18/2024 1:47 PM MUSEUM ATTENDANT) WBC 5.9 3.8 - 9.9 K/cumm Comment:Testing performed by : [address] [address] Hgb 12.9 11.9 - 15.5 g/dL L[facility] BOUCHER Comment:Testing performed by : [address] [address] Hct 37.3 35.6 - 45.5 % L[facility] BOUCHER Comment:Testing performed by : [address] [address] Plt 208 150 - 400 K/cumm L[facility] BOUCHER Comment:Testing performed by : [address] [address] MPV 11.2 9.1 - 12.3 fL [facility] BOUCHER Comment:Testing performed by : [address] [address] RBC 4.26 3.90 - 5.20 M/cumm LUCERO BOUCHER Comment:Testing performed by : [address] [address] MCV 87.6 81.3 - 96.4 fL LUCERO BOUCHER Comment:Testing performed by : [address] [address] MCH 30.3 27.1 - 33.3 pg LUCERO BOUCHER Comment:Testing performed by : [address] [address] MCHC 34.6 32.3 - 35.7 g/dL LUCERO Comment:Testing performed by : [address], [address] RDW CV 12.2 11.1 - 14.9 % LUCERO BOUCHER Comment:Testing performed by : [address] [address] RDW SD 38.5 35.7 - 48.1 fL [facility] Comment:Testing performed by : [address], [address] NRBC abs 0.00 0.00 - 0.01 K/cumm [facility] Comment:Testing performed by : [address] [address] Blood 07/18/2024 1:47 PM MUSEUM ATTENDANT 07/18/2024 2:04 PM MUSEUM ATTENDANT Anita HENDERSON LAB BLOOD ORDERABLES Abimael mauricio Result - Final [facility] [address] [facility] Department of Laboratories [place], [place] [id number] * (ABNORMAL) Manual Differential (07/18/2024 1:47 PM MUSEUM ATTENDANT) Differential Manual Comment:Testing performed by : [address] [address] Cells Counted 100 LUCERO Comment:Testing performed by : [address] [address] Neutrophil pct 44.0 % L[facility] Comment: Interpretive Data Percent cell count reference ranges are not reported, since discordance with absolute values may lead to misinterpretation of CBC data. Current Interpretive Data was last revised on 2017. Testing performed by: [address] [address] Lymphocyte pct 38.0 % CERANANDA Comment: Interpretive Data Percent cell count reference ranges are not reported, since discordance with absolute values may lead to misinterpretation of CBC data. Current Interpretive Data was last revised on 2017. Testing performed by: [address] [address] Monocyte pct 7.0 % LUC[facility] Comment: Interpretive Data Percent cell count reference ranges are not reported, since discordance with absolute values may lead to misinterpretation of CBC data. Current Interpretive Data was last revised on 2017. Testing performed by: [address] [address] Eosinophil pct 6.0 % LUCERO Comment: Interpretive Data Percent cell count reference ranges are not reported, since discordance with absolute values may lead to misinterpretation of CBC data. Current Interpretive Data was last revised on 2017. Testing performed by: [address] [address] Basophil pct 1.0 % LUCERO Comment: Interpretive Data Percent cell count reference ranges are not reported, since discordance with absolute values may lead to misinterpretation of CBC data. Current Interpretive Data was last revised on 2017. Testing performed by: [address] [address] Band Neutrophil pct 1.0 % [facility] Comment:Testing performed by : [address] [address] Metamyelocyte pct 0.0 % [facility] Comment:Testing performed by : [address] [address] Myelocyte pct 0.0 % [facility] Comment:Testing performed by : [address] [address] Promyelocyte pct 0.0 % [facility] Comment:Testing performed by : [address] [address] Blast pct 0.0 0.0 - 0.0 % [facility] Comment:Testing performed by : [facility], [address] [place] [address], [place]., [address] Variant lymph pct 3.0(H) 0.0 - 0.0 % LUCERO Comment:Testing performed by : [facility], [address] [place] [address], [place]., [address] Plasma cell pct 0.0 % LUC[facility] Comment:Testing performed by : [address], [place]., [address] RBC morphology Consistent with RBC Indicies L[facility] Comment:Testing performed by : [address], [place]., [address] Anisocytosis Slight(A) [facility] Comment:Testing performed by : [address], [place]., [address] Platelet estimate Adequate [facility] Comment:Testing performed by : [address] [address] [address] Arnold Normocytic RBCs, WBC count normal in number and predominantly normal in morphology. No significant correlation of circulatory blasts identified. Normal platelet count with predominantly normal morphology. [facility]UCERO Comment:Testing performed by : [facility], [address] [place] [address]., [address] Blood 07/18/2024 1:47 PM MUSEUM ATTENDANT 07/18/2024 2:04 PM MUSEUM ATTENDANT Anita HENDERSON LAB BLOOD ORDERABLES Abimael mauricio Result - Final [facility] [address] [facility] Department [place] [address] * Hepatitis C antibody Blood (07/10/2023 11:32 AM MUSEUM ATTENDANT) Hep C Ab Nonreactive Nonreactive L[facility] Comment: [...] on 2019. Blood 07/10/2023 11:3 2 AM MUSEUM ATTENDANT 07/10/2023 2:22 PM MUSEUM ATTENDANT us Roby Leong MD LAB MICROBIOLOGY - GENERAL ORDERABLES Edited Result - Final [facility] [address] [facility] Department of Laboratories [place] [id number] from Last 3 Months or Most Recently Relevant to Health Maintenance Insurance [employer] Hively Advance Directives For more information, please contact: [phone] * Full Code (Latest Code Status on File) Date Activated Date Inactivated Comments 01/23/2024 2:08 PM 01/24/2024 3:55 PM * Full Code Date Activated Date Inactivated Comments 01/07/2024 6:56 PM 01/09/2024 4:14 PM * Full Code Date Activated Date Inactivated Comments 01/07/2024 1:40 AM 01/07/2024 6:56 PM Full CPR in case of cardiopulmonary arrest Care Teams Block Piler Relationship Specialty Start Date End Date Anita Ibarra PA [address] [facility] [address] [place] [address] PCP - General Family Medicine 02/17/24 No, Physician 09/05/22 Eduardo Chong MD [address] [place] [address] [address] [place] [address] Consulting Physician General Surgery 01/23/24
--- OUTSIDE RECORDS SUMMARY | 2024-10-08 12:18 | XMS_ITS | Clinical Summary ---
Author Organization [facility] Address [address] [place] [address] Care Team Providers Care Insurance Broker Name Role Phone No, Physician Unavailable Eduardo Chong MD Unavailable Anita Ibarra Primary Care Provider + Allergies No known active allergies Medications vit [id number]-dh a 27mg iron- 800 mcg-250 mg capsule [...] 04/01/2024 Assessment & Plan (06/10/2024 8:28 PM [facility]ER [facility]ORD[facility]): CBC normal, LFT's normalized US Spleen appears [...] 06/10/2024 Assessment & Plan (06/10/2024 8:26 PM [facility] SWORD[facility]): Resolved Assessment & Plan (04/01/2024 11:36 AM CDT): Improved. Repeat labs 2 months Assessment & Plan (02/17/2024 5:01 PM CDT): Repeat labs so that these levels have returned to normal/baseline. Likely was elevated due to acute cholecystitis at that time. Thickening of wall of gallbladder 01/23/2024 02/17/2024 Encounters Date Type Department Care Team Description 09/21/2024 Results Follow-Up [facility] Medicine [address] [place] [phone] Janine Diaz PA 09/14/2024 5:19 PM CDT - 09/14/2024 11:59 PM CDT Hospital Encounter [facility] Ultrasound [address] [place] [phone] Splenomegaly; LUQ pain Discharge Disposition: Discharge to home or self care 09/05/2024 10:45 AM CDT Office Visit [facility] Family Medicine [address] [place] [phone] Eduardo Polanco MD LUQ pain (Primary Dx); Left flank pain; Acute left-sided low back pain without sciatica; Splenomegaly; Morbid obesity with BMI of 40.0-44.9, adult (HCC) 08/04/2024 Telephone [facility] Family Medicine [address] [place] [phone] Anita Ibarra PA 07/20/2024 Orders Only [facility] Lab [address] [place] [address] Anita Ibarra PA 07/19/[address] [phone] Anita Ibarra PA 07/19/2024 Orders Only [address] [phone] Anita Ibarra PA 07/18/2024 1:35 PM [facility] Lab [facility] [address] [place] [address] Splenomegaly 07/11/[address] [phone] Anita Iabrra PA Medical Question/Miscellaneo us 07/11/[address] [phone] Anita Ibarra PA from Last [...] staff should administer the PHQ-9) 0 06/10/2024 [place] Depression Scale Answer Date Recorded [place] Depression Scale Total 3 02/14/2024 The thought [...] on file Legal Sex Female 2:01 PM [facility] Gender Identity Female 09/08/2022 10:50 AM CDT [...] ier Ana M Varma MD Complications:None Delivery Location:[facility] Main C ampus ([facility]) Last Filed Vital Signs Vital Sign [...] REVIEW - PATHOLOGIST Routine 07/18/2024 1:47 PM [facility] Splenomegaly MANUAL DIFFERENTIAL Routine 07/18/2024 1 :47 PM [facility] Splenomegaly DIFFERENTIAL AUTO Routine 07/18/2024 1:4 7 PM [facility] Splenomegaly CBC WITH AUTO DIFFERENTIAL Routine 07/18/2024 1:47 PM [facility] Splenomegaly HEPATITIS C ANTIBODY Routine 07/10/2023 11:32 AM [facility] Encounter for supervision of normal in first [...] Simón Daniels M.D. CH: FAB Report ID: [id number] Reading Location: [id number] Procedure Note Simón Daniels Jr., MD - [...] by Simón Daniels M.D. CH: Report ID: [id number] Reading Location: [id number] us Eduardo Polanco MD IMG US PROCEDURES Fi nal Result * Slide review - pathologist (07/18/2024 1:47 PM [facility] SWORDF[facility]) Slide review by Slide Made Comment: Slide reviewed by Senior Staff.Agree with Manual Differential, few giant platelets seen. SentFor path review due to physian request. Sarah Dante 07/22/2024 08:49:09 [facility] Testing performed by: [facility], [address] [place] [address]., [address] Blood 07/18/2024 1:47 PM [facility] 07/18/2024 2:04 PM [facility] Narrative [facility] - 07/22/2024 8:49 AM [facility] unexplained splenomegaly us Anita HENDERSON LAB BLOOD ORDERABLES Fin al Result [facility] [address] [facility] [place] [address] * Differential, auto (07/18/2024 1:47 PM [facility]ER [facility]ORDF[facility]) Neutrophil abs 3.6 1.5 - 6.5 K/cumm Comment:Testing performed by : [address], [place]., [address] Imm gran abs 0.0 0.0 - 0.1 K/cumm [facility] Comment:Testing performed by : [address], [place]., [address] Lymphocyte abs 1.5 0.8 - 3.3 K/cumm [facility] Comment:Testing performed by : [address] [address] Monocyte abs 0.6 0.2 - 0.8 K/cumm [facility] Comment:Testing performed by : [address], [place]., [address] Eosinophil abs 0.1 0.0 - 0.5 K/cumm [facility] Comment:Testing performed by : [address], [place]., [address] Basophil abs 0.0 0.0 - 0.1 K/cumm [facility] Comment:Testing performed by : [address] [address] Neutrophil pct 61.4 % [facility] Comment: Interpretive Data Percent cell count reference ranges are not reported, since discordance with absolute values may lead to misinterpretation of CBC data. Current Interpretive Data was last revised on 2017. Testing performed by: [address] [address] Imm gran pct 0.2 % [facility] Comment: Interpretive Data Percent cell count reference ranges are not reported, since discordance with absolute values may lead to misinterpretation of CBC data. Current Interpretive Data was last revised on 2017. Testing performed by: [address] [address] Lymphocyte pct 25.4 % [facility] Comment: Interpretive Data Percent cell count reference ranges are not reported, since discordance with absolute values may lead to misinterpretation of CBC data. Current Interpretive Data was last revised on 2017. Testing performed by: [address] [address] Monocyte pct 9.9 % [facility] Comment: Interpretive Data Percent cell count reference ranges are not reported, since discordance with absolute values may lead to misinterpretation of CBC data. Current Interpretive Data was last revised on 2017. Testing performed by: [address] [address] Eosinophil pct 2.4 % [facility] Comment: Interpretive Data Percent cell count reference ranges are not reported, since discordance with absolute values may lead to misinterpretation of CBC data. Current Interpretive Data was last revised on 2017. Testing performed by: [address] [address] Basophil pct 0.7 % [facility] Comment: Interpretive Data Percent cell count reference ranges are not reported, since discordance with absolute values may lead to misinterpretation of CBC data. Current Interpretive Data was last revised on 2017. Testing performed by: [address] [address] Blood 07/18/2024 1:47 PM [facility]ER [facility] 07/18/2024 2:04 PM [facility] SW[employer] us Anita HENDERSON LAB BLOOD ORDERABLES Fin al Result [facility] [address] [facility] Department of Laboratories [place], [place] [phone] * CBC with auto differential (07/18/2024 1:47 PM FISHER SWORDFISH) Pathologist [facility] WBC 5.9 3.8 - 9.9 K/cumm Comment:Testing performed by : [address] [address] Hgb 12.9 11.9 - 15.5 g/dL [facility] Comment:Testing performed by : [address] [address] Hct 37.3 35.6 - 45.5 % [facility] Comment:Testing performed by : [address] [address] Plt 208 150 - 400 K/cumm [facility] Comment:Testing performed by : [address] [address] MPV 11.2 9.1 - 12.3 fL [facility] Comment:Testing performed by : [address] [address] RBC 4.26 3.90 - 5.20 M/cumm [facility] Comment:Testing performed by : [address] [address] MCV 87.6 81.3 - 96.4 fL [facility] Comment:Testing performed by : [address] [address] MCH 30.3 27.1 - 33.3 pg [facility] Comment:Testing performed by : [address] [address] MCHC 34.6 32.3 - 35.7 g/dL [facility] Comment:Testing performed by : [address] [address] RDW CV 12.2 11.1 - 14.9 % [facility] Comment:Testing performed by : [address] [address] RDW SD 38.5 35.7 - 48.1 fL [facility] Comment:Testing performed by : [address] [address] NRBC abs 0.00 0.00 - 0.01 K/cumm [facility] Comment:Testing performed by : [address] [address] Blood 07/18/2024 1:47 PM [facility]ER SWORD[facility]ISH 07/18/2024 2:04 PM [employer] us Anita HENDERSON LAB BLOOD ORDERABLES Abimael mauricio Result - Final [facility] [address] [facility] [place] [address] * (ABNORMAL) Manual Differential (07/18/2024 1:47 PM [facility]ER SWORDF[facility]) Differential Manual Comment:Testing performed by : [address] [address] Cells Counted 100 [facility] Comment:Testing performed by : [address] [place] [address] Neutrophil pct 44.0 % [facility] Comment: Interpretive Data Percent cell count reference ranges are not reported, since discordance with absolute values may lead to misinterpretation of CBC data. Current Interpretive Data was last revised on 2017. Testing performed by: [address] [address] Lymphocyte pct 38.0 % [facility] Comment: Interpretive Data Percent cell count reference ranges are not reported, since discordance with absolute values may lead to misinterpretation of CBC data. Current Interpretive Data was last revised on 2017. Testing performed by: [address] [address] Monocyte pct 7.0 % [facility] Comment: Interpretive Data Percent cell count reference ranges are not reported, since discordance with absolute values may lead to misinterpretation of CBC data. Current Interpretive Data was last revised on 2017. Testing performed by: [address] [address] Eosinophil pct 6.0 % [facility] Comment: Interpretive Data Percent cell count reference ranges are not reported, since discordance with absolute values may lead to misinterpretation of CBC data. Current Interpretive Data was last revised on 2017. Testing performed by: [address] [address] Basophil pct 1.0 % [facility] Comment: Interpretive Data Percent cell count reference ranges are not reported, since discordance with absolute values may lead to misinterpretation of CBC data. Current Interpretive Data was last revised on 2017. Testing performed by: [address] [address] Band Neutrophil pct 1.0 % [facility] Comment:Testing performed by : [address] [address] Metamyelocyte pct 0.0 % [facility] Comment:Testing performed by : [address] [address] Myelocyte pct 0.0 % [facility] Comment:Testing performed by : [address] [address] Promyelocyte pct 0.0 % [facility] Comment:Testing performed by : [facility], [address] [place] [address], [place]., [address] Blast pct 0.0 0.0 - 0.0 % [facility] Comment:Testing performed by : [facility], [address] [place] [address], [place]., [address] Variant lymph pct 3.0(H) 0.0 - 0.0 % [facility] Comment:Testing performed by : [address], [place]., [address] Plasma cell pct 0.0 % [facility] Comment:Testing performed by : [address], [place]., [address] RBC morphology Consistent with RBC Indicies [facility] Comment:Testing performed by : [address] [address] Anisocytosis Slight(A) [facility] Comment:Testing performed by : [address] [address] Platelet estimate Adequate [facility] Comment:Testing performed by : [address] [address] [address] Arnold Normocytic RBCs, WBC count normal in number and predominantly normal in morphology. No significant correlation of circulatory blasts identified. Normal platelet count with predominantly normal morphology. [facility] Comment:Testing performed by : [facility], [address] [place] [address]., [address] Blood 07/18/2024 1:47 PM [facility] 07/18/2024 2:04 PM [facility] Anita HENDERSON LAB BLOOD ORDERABLES Abimael mauricio Result - Final [facility] [address] [facility] [place] [address] * Hepatitis C antibody Blood (07/10/2023 11:32 AM [facility]) Hep C Ab Nonreactive Nonreactive [facility] Comment: [...] on 2019. Blood 07/10/2023 11:3 2 AM [facility] 07/10/2023 2:22 PM [employer] us Roby Leong MD LAB MICROBIOLOGY - GENERAL ORDERABLES Edited Result - Final [facility] [address] [facility] [place] [address] from Last 3 Months or Most Recently Relevant to Health Maintenance Insurance [employer] Address: [facility] [id number] [place] [address] [employer] Address: [facility] [id number] [place] [id number] Advance Directives For more information, please contact: [phone] * Full Code (Latest Code Status on File) Date Activated Date Inactivated Comments 01/23/2024 2:08 PM 01/24/2024 3:55 PM * Full Code Date Activated Date Inactivated Comments 01/07/2024 6:56 PM 01/09/2024 4:14 PM * Full Code Date Activated Date Inactivated Comments 01/07/2024 1:40 AM 01/07/2024 6:56 PM Full CPR in case of cardiopulmonary arrest Care Teams Insurance Broker Relationship Specialty Start Date End Date Anita Ibarra PA [address] [facility] [address] [place], [place] [phone] PCP - General Family Medicine 02/17/24 No, Physician 09/05/22 Eduardo Chong MD [facility] [address] [place] [address] Consulting Physician General Surgery 01/23/24
[2024-10-08 12:22] LABS: BEDSIDEPREGUCG Negative (Negative)
== END 2024-10-08 13:16 | disposition home or self-care (01) ==
PROVIDERS: Emergency Provider Emergency Medicine; PCP Physician Assistant
DX: M54.50 Low back pain, unspecified (principal); S40.022A Contusion of left upper arm, initial encounter; V89.2XXA Person injured in unspecified motor-vehicle accident, traffic, initial encounter; W22.10XA Striking against or struck by unspecified automobile airbag, initial encounter
CPT/HCPCS: 72100; 73060; 81025; 99284